=== PATIENT | female | born 1985 | race Two or more races ===

== ENCOUNTER 2018-11-03 05:55 | Emergency (ER) | payer BC ==
[2018-11-03] MEDS ORDERED: LIDOCAINE HCL-MPF 1% 2ML VIAL ONE (06:03)
== END 2018-11-03 06:37 | disposition home or self-care (01) ==
LOC: EDH 05:55
DX: T16.1XXA Foreign body in right ear, initial encounter (principal); Z88.0 Allergy status to penicillin; X58.XXXA Exposure to other specified factors, initial encounter; Y93.89 Activity, other specified; Y92.89 Other specified places as the place of occurrence of the external cause; Y99.8 Other external cause status
CPT/HCPCS: 69200; 99284; J3490